=== PATIENT | male | born 1965 | race Caucasian/White ===

== ENCOUNTER 2020-12-02 06:19 | Emergency (ER) | payer OTHER ==
[~2020-12-02] VITALS: Ht 170.2 cm; Wt 76.0 kg
[2020-12-02 06:19] VITALS: BP 179/102
[2020-12-02] MEDS ORDERED: IOHEXOL 350 MG/ML 100 ML VIAL. IV ONE (06:45)
[2020-12-02] MEDS ORDERED: ASPIRIN 325 MG TABLET PO ONE (06:45)
[2020-12-02] MEDS ORDERED: IV NORMAL SALINE 1,000ML 1,000 ML IV ONE (06:45)
--- NOTE | 2020-12-02 06:45 | PHYS DOC ---
Past History Past Medical History: Hypertension Past Surgical History: Tonsillectomy Smoking: Non-smoker Drug Use: None General Adult EDM: Chief Complaint: Chest pain HPI: HPI: 55-year-old male presents with report of intermittent left arm pain and numbness that has been ongoing for the past 4 days. Patient also reports some associated chest "discomfort ". Patient reports today after performing some [place] chores [place] he subsequently developed more severe chest discomfort/pain. Patient does report some associated nausea and radiation to his back. Denies known trauma. Denies neck pain. Patient reports cardiac risk factors of hypertension and family history of father with CT in his 60s. Denies fever or chills. Denies cough. Patient does report receiving both Moderna COVID vaccinations with the last one in July 2020. Denies leg swelling or calf tenderness. Review of Systems: Review of Systems: Constitutional: Denies fever or chills Eyes: Denies redness or eye pain HENT: Denies nasal congestion or sore throat Respiratory: Denies cough or shortness of breath Cardiovascular: Denies palpitations; reports chest pain GI: Denies abdominal pain or vomiting; reports nausea : Denies dysuria or hematuria Musculoskeletal: Reports back pain and left arm pain Integument: Denies rash or skin lesions Neurologic: Denies headache; reports left arm numbness Complete systems were reviewed and found to be within normal limits, except as documented in this note. Physical Exam: PE: Constitutional: Well developed, well nourished, no acute distress, non-toxic appearance HENT: Normocephalic, atraumatic Eyes: Conjunctiva normal, no discharge Neck: Normal range of motion, no tenderness, supple Lungs & Thorax: No respiratory distress, equal chest rise and fall Cardiovascular: RRR, CR < 2 sec Abdomen: Soft, no tenderness Skin: Warm, dry, no erythema, no rash Back: No tenderness, no CVA tenderness Extremities: No calf tenderness, ROM intact, no edema Neurologic: Alert and oriented X 3, normal motor function, normal sensory functi on, no focal deficits noted Psychologic: Affect anxious, judgment normal EKG: EKG: @0629 NSR at 78bpm, NO ST elevation, QRS 90ms, QT/QTc 376/432ms, nonspecific t wave inversion III @0721 NSR at 70bpm, NO ST elevation, QRS 94ms, QT/QTc 400/435ms, no significant change from prior Radiology/Procedures: Radiology/Procedures: PROCEDURE: CT ANGIOGRAPHY CHEST EXAMINATION: CTA Chest With IV contrast INDICATION:55 years, Male, chest pain, evaluate for pulmonary embolism. COMPARISON: None. TECHNIQUE: Spiral CTA was obtained from the jugular notch through the posterior costophrenic recess. 3-D MIPS, sagittal and coronal reformats were obtained. Exposure: One or more of the following individualized dose reduction techniques were utilized for this examination: 1. Automated exposure control 2. Adjustment of the mA and/or kV according to patient size 3. Use of iterative reconstruction technique. FINDINGS: LUNGS/PLEURA: Central airways are patent. Dependent subsegmental atelectasis in bibasilar lungs. No focal consolidation, pleural effusion or pneumothorax. No suspicious pulmonary nodule.. MEDIASTINUM: No pathologic mediastinal or hilar adenopathy. The thoracic aorta and pulmonary arteries are normal in caliber. No evidence of pulmonary embolism.. The heart is normal in size. No pericardial effusion. Mild calcified coronary atherosclerosis. The visualized thyroid and the esophagus are unremarkable. AXILLA/SOFT TISSUE: No supraclavicular or axillary adenopathy. Regional soft tissues are within normal limits. UPPER ABDOMEN: Small hiatal hernia. BONES: No evidence of acute fractures or aggressive osseous lesions. IMPRESSION: 1. No evidence of pulmonary embolism. 2. No focal consolidation. Electronically signed by: Tegan Agarwal MD (12/02/2020 7:28 AM) [facility] Heart Score: C/O Chest Pain: Yes HEART Score for Chest Pain: HEART Score for Chest Pain Response (Comments) Value History Moderately Suspicious 1 ECG Normal 0 Age >45 - < 65 1 Risk Factors 1 or 2 Risk Factors 1 Troponin >1-<3x Normal Limit 1 Total 4 Risk Factors: Risk Factors: DM, Current or recent (<one month) smoker, HTN, HLP, family history of CAD, obesity. Risk Scores: Score 0 - 3: 2.5% MACE over next 6 weeks - Discharge Home Score 4 - 6: 20.3% MACE over next 6 weeks - Admit for Clinical Observation Score 7 - 10: 72.7% MACE over next 6 weeks - Early Invasive Strategies Course & Med Decision Making: Course & Med Decision Making Pertinent Labs and Imaging studies reviewed. (See chart for details) Patient presents with intermittent chest discomfort and left arm pain/numbness x4 days. Patient also with associated radiation to back and nausea. Patient does have risk factors with father and hypertension. Patient does report he has not seen a doctor in approximately 11 years. EKG obtained without acute proces s. Labs obtained and posted to chart. Troponin elevated. CTA chest without acute process. There is significant cardiac concern given patient's HPI and family history combined with elevated troponin. Concern for NSTEMI. Heparin bolus/gtt initiated. Patient requiring laboratory aide evaluation with cardiology. Discussed case with Dr. Flores (cardiology) who accepts transfer to [facility] for urgent cardiac cath. COVID testing performed due to need for admission/procedure. Discussed findings and plan with patient and spouse, who acknowledge understanding and agreement. Francois Disclaimer: Francois Disclaimer: This electronic medical record was generated, in whole or in part, using a voice recognition dictation system. Departure Departure: Impression: Primary Impression: NSTEMI (non-ST elevated myocardial infarction) Disposition: 02 SHORT TERM HOSPITAL ([facility]- Dr. Flores (cardiology) accepting for patient to come to laboratory aide) Condition: GUARDED Referrals: PCP,UNKNOWN (PCP) Critical Care Time Critical care time was 30 minutes which includes time at bedside, spent in discussion of patient's care with specialists and/or family members, with interpretation of laboratory and/or radiological studies and is exclusive of procedures. ROCCO JON DO Dec 02, 2020 06:45
--- NOTE | 2020-12-02 06:46 | EKG ---
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
[2020-12-02] MEDS ORDERED: CONTRAST GIVEN. MC PRN (07:00)
[2020-12-02 07:03] LABS: BASO # 0.1 x10^3/uL (0.0-0.2); BASO % 2 % (0-3); EOS # 0.2 x10^3/uL (0.0-0.7); EOS % 4 % (0-3); HEMATOCRIT 43.8 % (39.0-53.0); HEMOGLOBIN 14.9 g/dL (13.0-17.5); LYMPH # 1.4 x10^3/uL (1.0-4.8); LYMPH % 32 % (24-48); MEAN CORPUSCULAR HEMOGLOBIN 32 pg (25-35); MEAN CORPUSCULAR HGB CONC 34 g/dL (31-37); MEAN CORPUSCULAR VOLUME 94 fL (79-100); MONO # 0.5 x10^3/uL (0.0-1.1); MONO % 11 % (0-9); NEUT # 2.3 x10^3uL (1.8-7.7); NEUT % 52 % (31-73); PLATELET COUNT 224 x10^3/uL (140-400); RED BLOOD COUNT 4.64 x10^6/uL (4.30-5.70); RED CELL DISTRIBUTION WIDTH 12.3 % (11.5-14.5); WHITE BLOOD COUNT 4.3 x10^3/uL (4.0-11.0)
[2020-12-02 07:16] LABS: CALCIUM 9.1 mg/dL (8.5-10.1); GFR 77.6; POTASSIUM 4.5 mmol/L (3.5-5.1)
--- NOTE | 2020-12-02 07:30 | EKG ---
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
--- NOTE | 2020-12-02 07:30 | RAD ---
EXAMINATION: CTA Chest With IV contrast INDICATION:55 years, Male, chest pain, evaluate for pulmonary embolism. COMPARISON: None. TECHNIQUE: Spiral CTA was obtained from the jugular notch through the posterior costophrenic recess. 3-D MIPS, sagittal and coronal reformats were obtained. Exposure: One or more of the following individualized dose reduction techniques were utilized for thi s examination: 1. Automated exposure control 2. Adjustment of the mA and/or kV according to patient size 3. Use of iterative reconstruction technique. FINDINGS: LUNGS/PLEURA: Central airways are patent. Dependent subsegmental atelectasis in bibasilar lungs. No f ocal consolidation, pleural effusion or pneumothorax. No suspicious pulmonary nodule.. MEDIASTINUM: No pathologic mediastinal or hilar adenopathy. The thoracic aorta and pulmonary arteries are normal in caliber. No evidence of pulmonary embolism.. The heart is normal in size. No pericardi al effusion. Mild calcified coronary atherosclerosis. The visualized thyroid and the esophagus are u nremarkable. AXILLA/SOFT TISSUE: No supraclavicular or axillary adenopathy. Regional soft tissues are within dee l limits. UPPER ABDOMEN: Small hiatal hernia. BONES: No evidence of acute fractures or aggressive osseous lesions. IMPRESSION: 1. No evidence of pulmonary embolism. 2. No focal consolidation. Electronically signed by: Tegan Agarwal MD (12/02/2020 7:28 AM) [facility]
[2020-12-02 07:32] LABS: ALBUMIN/GLOBULIN RATIO 1.3 (1.0-1.7); MAGNESIUM 2.2 mg/dL (1.8-2.4); TOTAL BILIRUBIN 0.5 mg/dL (0.2-1.0); TOTAL PROTEIN 7.2 g/dL (6.4-8.2)
[2020-12-02] MEDS ORDERED: HEPARIN 25,000UTS/250ML PREMIX 250 ML IV PRN (07:45)
[2020-12-02] MEDS ORDERED: HEPARIN for IV BOLUS 10,000 UNIT/10 ML VIAL. IV ONE (07:45)
== END 2020-12-02 08:40 | disposition short-term general hospital (02) ==
LOC: ER 06:19
DX: I21.4 Non-ST elevation (NSTEMI) myocardial infarction (principal); I10 Essential (primary) hypertension; Z20.822 Contact with and (suspected) exposure to COVID-19
CPT/HCPCS: 36415; 71275; 80053; 82553; 83690; 83735; 83880; 84484; 85025; 85610; 85730; 87426; 93005; 96361; 96365; 96376; 99291; C9803; J1644; J7030; Q9967; U0003